=== PATIENT | male | born 1980 | race African-American/Black ===

== ENCOUNTER 2023-03-21 13:35 | Emergency (ER) | payer OTHER, SELFPAY ==
[2023-03-21 13:57] VITALS: BP 127/79; PULSE 97; RESP 16; TEMP 36.8; O2SAT 100; BMI 26.4
--- NOTE | 2023-03-21 14:08 | XR_ITS ---
The [address] [address] Patient Name: CAROLINA SHEFFIELD MRN: [id number] date: 1980 Sex: M Assigned Patient Location: ED.MAIN Current Patient Location: ER Accession/Order Number: [id number] Exam Date: 03/21/2023 14:25 Report Date: 03/21/2023 14:54 At the request of: AALIYAH DOWNS Procedure: XR toe LT min 2V PROCEDURE: XR toe LT min 2V HISTORY: 1st toe ulcer ; distal right first toe ulcer COMPARISON: None. FINDINGS: BONES:No periosteal reaction or cortical thickening. SOFT TISSUES:Large skin surface defect along the plantar medial aspect of first toe at level of the interphalangeal joint. No radiopaque foreign body. EFFUSION:None visible. OTHER: Negative. XR/XR toe LT min 2V IMPRESSION: 1. Skin surface wound compatible with history of ulcer. No underlying bone involvement. Electronically authenticated by: HILARIO PRABHAKAR Date: 03/21/2023 14:54
--- NOTE | 2023-03-21 14:10 | ED_ITS ---
HPI - Skin/Abscess/Foreign Bdy General Chief complaint: Skin/Abscess/Foreign Body Stated complaint: LOWER EXTREMITY PAIN LEFT BIG TOE Time Seen by Provider: 03/21/23 13:52 Source: patient Mode of arrival: walk-in Limitations: no limitations History of Present Illness HPI narrative: 43-year-old male who is an insulin-dependent type 2 diabetic presents with an ulcer to his left great toe that is been there for the past month. He states that he has been busy and this is why he has not addressed his toe. He states it has been filled with pus and broke open 1 week ago and drained. He is [facility] at [facility] and states that he has not used crack in 1 month. Denies pain. Denies swelling, temp or sensation changes denies fever, n/v/d, SOB or CP Related Data Previous Rx's Medication Instructions Recorded amoxicillin 875 mg-potassium 1 tab PO Q12H 10 days #20 tabs 03/21/23 clavulanate 125 mg tablet magnesium 200 mg tablet 400 mg PO DAILY 5 days #10 tabs 03/21/23 potassium chloride 20 mEq 40 meq PO DAILY 5 days #10 tabs 03/21/23 tablet,extended release Allergies Allergy/AdvReac Type Severity Reaction Status Date / Time No Known Drug Allergies Allergy Verified 03/21/23 13:57 Review of Systems ROS0 Status of ROS 10 or more systems reviewed and unremarkable except as noted in history and below Exam Narrative Exam Narrative: General: A&Ox3, no distress, talking in full an complete sentences skin: warm, dry, intact, stage II ulcer to the left plantar surface of the first toe with a foul odor, no drainage head: normocephalic, atraumatic eyes: EOMI nose: nares patent neck: supple, trachea midline respiratory: non-labored extremities: FROM x 4, strength +5/5 neuro: A&Ox3 psych: appropriate mood and affect, cooperative Constitutional Vital Signs, click to edit/add: Last Vital Signs Temp 98.3 F 03/21/23 13:57 Pulse 97 H 03/21/23 13:57 Resp 16 03/21/23 13:57 BP 127/79 03/21/23 13:57 Pulse Ox 100 03/21/23 13:57 O2 Del Method Room Air 03/21/23 13:57 Course Vital Signs Vital signs: Vital Signs Temperature 98.3 F 03/21/23 13:57 Pulse Rate 97 H 03/21/23 13:57 Respiratory Rate 16 03/21/23 13:57 Blood Pressure 127/79 03/21/23 13:57 Pulse Oximetry 100 03/21/23 13:57 Oxygen Delivery Method Room Air 03/21/23 13:57 Temperature 98.3 F 03/21/23 13:57 Pulse Rate 97 H 03/21/23 13:57 Respiratory Rate 16 03/21/23 13:57 Blood Pressure 127/79 03/21/23 13:57 Pulse Oximetry 100 03/21/23 13:57 Oxygen Delivery Method Room Air 03/21/23 13:57 MDM - Skin/Abscess/Foreign Bdy MDM Narrative Medical decision making narrative: Potassium 2.9 and will be given 40 meq orally and 10 IV. Magnesium 1.3 and will be given 2 g magnesium IV. No acute findings on final read of toe x-ray and no gas production. No evidence of DVT on venous Doppler and he has good pulses. Hemoglobin 9.6 no previous labs to compare. He states that he has a known history of anemia and 9.6 is higher than it normally is. No other significant abnormalities. No signs of osteomyelitis or gangrene and will be discharged home on Augmentin and follow-up with the director of strategic initiatives/wound care. He will also be given a prescription for potassium and magnesium. F/u with PCP. afebrile, not tachypneic, not tachycardic, not hypoxic, non toxic appearing and ambulating at baseline and hemodynamically stable to be d/c. answered all questions. educated on SE of meds. pt in agreement with tx. educated when to return to ER. Lab Data Labs: Lab Results 03/21/23 Range/Units 14:17 WBC 9.9 (4.0-11.0) 10^3/uL RBC 4.41 L (4.70-6.10) 10^6/uL Hgb 9.6 L (14.0-18.0) g/dL Hct 28.8 L (42.0-54.0) % MCV 65.3 L (80.0-94.0) fL MCH 21.8 L (25.9-34.0) pg MCHC 33.3 (29.9-35.2) g/dL RDW 24.9 H (11.0-15.0) % Plt Count 173 (150-450) 10^3/uL MPV 8.5 L (9.5-13.5) fL Neut % (Auto) 73.8 (43.0-75.0) % Lymph % (Auto) 19.9 L (20.5-60.0) % [place] % (Auto) 4.6 (1.7-12.0) % Eos % (Auto) 0.9 (0.9-7.0) % Baso % (Auto) 0.2 (0.2-2.0) % Neut # (Auto) 7.3 H (1.4-6.5) 10^3/uL Lymph # (Auto) 2.0 (1.2-3.8) 10^3/uL [place] # (Auto) 0.5 (0.3-0.8) 10^3/uL Eos # (Auto) 0.1 (0.0-0.7) 10^3/uL Baso # (Auto) 0.0 (0.0-0.1) 10^3/uL Abs Immat Gran (auto) 0.06 H (0.00-0.03) 10^3/uL Imm/Tot Granulo (auto) 0.6 H (0.0-0.5) % Sodium 133 L (136-145) mmol/L Potassium 2.9 L* (3.5-5.1) mmol/L Chloride 100 (98-107) mmol/L Carbon Dioxide 21.2 (21.0-32.0) mmol/L Anion Gap 14.7 BUN 20.0 H (7.0-18.0) mg/dL Creatinine 1.22 (0.70-1.30) mg/dL Est GFR ( Amer) >60 (>=60) Est GFR (Non-Af Amer) >60 (>=60) BUN/Creatinine Ratio 16.4 Glucose 198 H (74-106) mg/dL Calcium 8.7 (8.5-10.1) mg/dL Magnesium 1.3 L (1.8-2.4) mg/dL Discharge Plan Discharge Chief Complaint: Skin/Abscess/Foreign Body Clinical Impression: Ulcer of toe due to type 2 diabetes mellitus, Hyperglycemia, Hypokalemia, Hypomagnesemia Patient Disposition: Home, Self-Care Time of Disposition Decision: 15:27 Condition: Good Mode of Transportation: Other Prescriptions / Home Meds: New amoxicillin-pot clavulanate 875-125 mg tablet 1 tab PO Q12H 10 Days Qty: 20 0RF magnesium 200 mg tablet 400 mg PO DAILY 5 Days Qty: 10 0RF potassium chloride 20 mEq tablet extended release 40 meq PO DAILY 5 Days Qty: 10 0RF Instructions: Hypokalemia (ED), Diabetic Foot Ulcers (ED), Hypomagnesemia (ED) Stand Alone Forms: Portal Instructions Referrals: [facility] care [Other] - As soon as possible Physician,Non-Staff, MD [Primary Care Provider] - 1 week Star Hutchins DPM [Physician] - As soon as possible
--- NOTE | 2023-03-21 14:17 | US_ITS ---
The [address] [address] Patient Name: CAROLINA SHEFFIELD MRN: [id number] date: 1980 Sex: M Assigned Patient Location: ER Current Patient Location: ER Accession/Order Number: [id number] Exam Date: 03/21/2023 14:30 Report Date: 03/21/2023 15:18 At the request of: AALIYAH DOWNS Procedure: US venous doppler LE LT EXAM: US venous doppler LE LT HISTORY: r/o dvt . The nonhealing wound in the distal left foot. COMPARISON: None. TECHNIQUE: Multiple sonographic images of the deep veins of the left lower extremity were obtained, supplemented with Doppler. FINDINGS: The deep veins of the left lower extremity are fairly well-visualized the groin to the mid calf. No filling defect is identified to indicate a thrombus. There is normal compression augmentation of flow throughout. US/US venous doppler LE LT IMPRESSION: There is no direct or indirect evidence of deep vein thrombosis in the left lower extremity at this time. Electronically authenticated by: AMANDA HAYES Date: 03/21/2023 15:18
[2023-03-21 14:27] LABS: Basophils Percent Auto 0.2 % (0.2-2.0); Eosinophils Absolute Auto 0.1 10^3/uL (0.0-0.7); Eosinophils Percent Auto 0.9 % (0.9-7.0); Hematocrit 28.8 % (42.0-54.0); Hemoglobin 9.6 g/dL (14.0-18.0); Immature Granulocytes Abs Auto 0.06 10^3/uL (0.00-0.03); Immature Granulocytes Pct Auto 0.6 % (0.0-0.5); Lymphocytes Percent Auto 19.9 % (20.5-60.0); Mean Corpuscular HGB Conc 33.3 g/dL (29.9-35.2); Mean Corpuscular Hemoglobin 21.8 pg (25.9-34.0); Mean Corpuscular Volume 65.3 fL (80.0-94.0); Mean Platelet Volume 8.5 fL (9.5-13.5); Monocytes Absolute Auto 0.5 10^3/uL (0.3-0.8); Monocytes Percent Auto 4.6 % (1.7-12.0); Neutrophils Absolute Auto 7.3 10^3/uL (1.4-6.5); Neutrophils Percent Auto 73.8 % (43.0-75.0); Platelet Count 173 10^3/uL (150-450); Red Blood Count 4.41 10^6/uL (4.70-6.10); Red Cell Distribution Width 24.9 % (11.0-15.0); White Blood Count 9.9 10^3/uL (4.0-11.0)
[2023-03-21 14:37] LABS: Anion Gap 14.7; BUN Creatinine Ratio 16.4; Calcium 8.7 mg/dL (8.5-10.1); Carbon Dioxide 21.2 mmol/L (21.0-32.0); Chloride 100 mmol/L (98-107); Estimated GFR (African America >60 (>=60); Estimated GFR (Non-African Ame >60 (>=60); Glucose 198 mg/dL (74-106); Sodium 133 mmol/L (136-145)
[2023-03-21 14:39] LABS: Potassium 2.9 mmol/L (3.5-5.1)
[2023-03-21 14:51] LABS: Magnesium 1.3 mg/dL (1.8-2.4)
[2023-03-21] MEDS: POTASSIUM CHLORIDE IN WATER 10 MEQ/100 ML PIGGYBACK 100 MEQ IV (15:42)
[2023-03-21] MEDS: POTASSIUM CHLORIDE 10 MEQ ER TABLET 40 MEQ PO (15:42)
[2023-03-21] MEDS: MAGNESIUM SULFATE IN WATER 50 ML IV (15:43)
== END 2023-03-21 16:41 | disposition home or self-care (01) ==
PROVIDERS: Physician Assistant; Emergency Provider Emergency Medicine
DX: E11.621 Type 2 diabetes mellitus with foot ulcer (principal); L97.529 Non-pressure chronic ulcer of other part of left foot with unspecified severity; E11.65 Type 2 diabetes mellitus with hyperglycemia; E87.6 Hypokalemia; E83.42 Hypomagnesemia
CPT/HCPCS: 36415; 73660; 80048; 83735; 85025; 93971; 96365; 96368; 99285